=== PATIENT | female | born 1990 | race Caucasian/White ===

== ENCOUNTER → 2016-05-09 | Outpatient (REF) | payer OTHER ==
[~2016-05-09] MED LIST: ACET500C PO; IBUP80TA PO; PRENTAB55 PO
[2016-05-09 13:41] LABS: MEAN CORPUSCULAR HGB CONC 32.6 g/dl (32.0-36.5); RED CELL DISTRIBUTION WIDTH 12.8 % (11.5-14.5)
[2016-05-09 14:12] LABS: CONTROL LINE INT CTR LINE PRESENT; HIV SCRN NEGATIVE (NEGATIVE); HIV SCRN1 NEGATIVE (NEGATIVE)
[2016-05-10 09:57] LABS: HBsAg Prenatal NEGATIVE (NEGATIVE)
[2016-05-10 11:44] LABS: HCG, SERUM QUANTITATIVE 21365 MIU/ML
== END ==
LOC: M LAB REF 12:24
PROVIDERS: ATTEND Obstetrics & Gynecology
DX: O36.80X0 Pregnancy with inconclusive fetal viability, not applicable or unspecified (principal); Z3A.00 Weeks of gestation of pregnancy not specified

== ENCOUNTER 2016-06-04 22:02 | Emergency (ER) | payer OTHER ==
[~2016-06-04] VITALS: Ht 160 cm; Wt 49.0 kg
[2016-06-04 22:02] VITALS: BP 129/71
== END 2016-06-05 00:06 | disposition left against medical advice (07) ==
LOC: M ED 23:23
DX: R11.10 Vomiting, unspecified (principal); Z53.21 Procedure and treatment not carried out due to patient leaving prior to being seen by health care provider

== ENCOUNTER → 2016-07-11 | Outpatient (REF) | payer OTHER | LOC: M LAB REF 12:44 | PROVIDERS: ATTEND Advanced Practice Midwife | DX: Z34.91 Encounter for supervision of normal pregnancy, unspecified, first trimester (principal) ==

== ENCOUNTER 2016-08-21 15:16 | Outpatient (CLI) | payer OTHER ==
[~2016-08-21] VITALS: Ht 160 cm; Wt 55.0 kg
[2016-08-21] MEDS ORDERED: ZOFR20TA PO (15:24)
[2016-08-21 15:31] VITALS: BP 110/58
[2016-08-21] MEDS ORDERED: MULTIVITAMIN -ADULT INJECTION 10 ML, THIAMINE INJection 100 MG, FOLIC ACID 1 MG in NS 1... IV ONE (16:00)
[2016-08-21] MEDS ORDERED: ONDANSETRON 4MG/2ML VIAL (J2405) IV SCH (16:00)
[2016-08-21] MEDS ORDERED: ACETAMINOPHEN TAB 650MG DOSE (2X325MG) PO PRN (16:15)
[2016-08-21 16:41] LABS: MEAN CORPUSCULAR HEMOGLOBIN 29.9 pg (27.0-33.0); MEAN CORPUSCULAR HGB CONC 34.3 g/dl (32.0-36.5); MEAN CORPUSCULAR VOLUME 87.4 fl (80.0-96.0); RED CELL DISTRIBUTION WIDTH 13.2 % (11.5-14.5); WHITE BLOOD COUNT 9.9 K/mm3 (4.0-10.0)
[2016-08-21 16:50] LABS: ALBUMIN 2.9 GM/DL (3.2-5.2); ALBUMIN/GLOBULIN RATIO 0.78 (1.00-1.93); ALKALINE PHOSPHATASE 55 U/L (45-117); ALT/SGPT 15 U/L (12-78); ANION GAP 8 MEQ/L (8-16); AST/SGOT 11 U/L (15-37); BILIRUBIN,TOTAL 1.1 MG/DL (0.2-1.0); BLOOD UREA NITROGEN 10 MG/DL (7-18); CALCIUM LEVEL 8.3 MG/DL (8.5-10.1); CARBON DIOXIDE LEVEL 25 MEQ/L (21-32); CHLORIDE LEVEL 104 MEQ/L (98-107); CREATININE FOR GFR 0.53 MG/DL (0.55-1.02); GLOMERULAR FILTRATION RATE > 60.0 (>60); GLUCOSE, FASTING 75 MG/DL (70-105); POTASSIUM SERUM 3.8 MEQ/L (3.5-5.1); SODIUM LEVEL 137 MEQ/L (136-145); TOTAL PROTEIN 6.6 GM/DL (6.4-8.2)
--- NOTE | 2016-08-21 22:48 | IPNPDOC ---
Text Note Date of Service The patient was seen on 08/21/16. NOTE SUBJECTIVE: Patient is a 26 year old female who is a at 21 weeks 5 days gestation based off of her 1st trimester ultrasound and consistent with her LMP. She initiated care in her first trimester at [facility]. Her has been complicated by nausea and vomiting in her 1st trimester and early 2nd trimester. She reports to L&D with complaints of nausea, vomiting, cramping in the suprapubic area, and lower right sided back pain. She reports these symptoms have been occurring for the last 3 days. Reports back pain is one sided , sharp, shooting, consistent that shoots down her but. Reports pain is worse with movement/walking. She denies vaginal bleeding, abnormal discharge, or leaking of fluid. She states she took a Zofran 4 mg PO today at 1100 with no relief. She has been unable to eat a meal for 3 days and is only getting in sips of fluid but reports vomiting it all up. Denies dysuria. Reports that no one else is sick in her home. Denies contractions. Reports active movement. 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 Surgical Hx: D&C 2013 Family Hx: Father: HTN, hyperthyroidism, GERD; Mother: bladder and liver disease ; Brother: Cystic fibrosis; Grandmother: paternal: breast cancer. Social: , not a smoker, denies drug use, denies alcohol use, no history of STDs. OBJECTIVE: FHR doppler: 150. No contractions noted on external monitor. Abdomen : gravid and soft to palpation. No CVA tenderness bilaterally. Respiratory: rate is regular. No use of accessory muscles. VS: 110/58, 71, 16, 98.7. ASSESSMENT: IUP at 21 weeks 5 days gestation, sciatica, nausea and vomiting in . PLAN: IV ordered with banana bag to be given over 2 hours, UA and C&S ordered, CBC and CMP ordered. Zofran ordered via IV for nausea. Warm pack for pain and acetaminophen as needed once tolerating PO fluids. Patient reports that her pain is better after a warm a pack. She reports her nausea is better and was able to keep some fluids down. Script sent for rectal phenergan. Patient will follow up for routine OB appointments if she is doing well. VS,Fishbone, I+O VS, Fishbone, I+O Microbiology 5/29/17 Urine Culture, Received Pending Laboratory Tests 08/21/16 00:00 Red Blood Count 3.97 L, Mean Corpuscular Volume 87.4, Mean Corpuscular Hemoglobin 29.9, Mean Corpuscular Hemoglobin Concent 34.3, Red Cell Distribution Width 13.2, Calcium Level 8.3 L, Aspartate Amino Transf (AST/SGOT) 11 L, Alanine Aminotransferase (ALT/SGPT) 15, Alkaline Phosphatase 55, Total Bilirubin 1.1 H, Total Protein 6.6, Albumin 2.9 L Vital Signs Date Time Temp Pulse Resp B/P (MAP) Pulse Ox O2 Delivery O2 Flow Rate FiO2 08/21/16 15:31 98.7 71 16 110/58 (75) CORTEZ NICOLAS CNM August 21, 2016 22:48
== END 2016-08-21 18:51 | disposition home or self-care (01) ==
LOC: M LDO 15:16
PROVIDERS: ATTEND Advanced Practice Midwife
DX: O26.892 Other specified pregnancy related conditions, second trimester (principal); Z3A.21 21 weeks gestation of pregnancy; O21.9 Vomiting of pregnancy, unspecified; M54.30 Sciatica, unspecified side; Z14.1 Cystic fibrosis carrier; Z80.3 Family history of malignant neoplasm of breast

== ENCOUNTER → 2016-10-25 | Outpatient (CLI) | payer OTHER ==
[~2016-10-25] MED LIST changes: +ACET50TA PO; +IBUP-1114 PO; +PRENTAB9 PO; +ZOFR20TA PO
[2016-10-25 16:33] LABS: MEAN CORPUSCULAR HEMOGLOBIN 28.7 pg (27.0-33.0); MEAN CORPUSCULAR HGB CONC 33.7 g/dl (32.0-36.5); MEAN CORPUSCULAR VOLUME 85.3 fl (80.0-96.0); RED CELL DISTRIBUTION WIDTH 13.4 % (11.5-14.5); WHITE BLOOD COUNT 7.2 K/mm3 (4.0-10.0)
== END ==
LOC: M LAB 14:54
PROVIDERS: ATTEND Advanced Practice Midwife
DX: Z34.82 Encounter for supervision of other normal pregnancy, second trimester (principal); Z3A.25 25 weeks gestation of pregnancy

== ENCOUNTER → 2016-11-23 | Outpatient (REF) | payer OTHER | LOC: M LAB REF 13:00 | PROVIDERS: ATTEND Obstetrics & Gynecology | DX: Z34.83 Encounter for supervision of other normal pregnancy, third trimester (principal) ==

== ENCOUNTER 2016-12-18 00:01 | Inpatient (IN) | payer OTHER ==
[2016-12-18] VITALS (25 sets, daily range): BP systolic 104–128; BP diastolic 55–76
[~2016-12-18] VITALS: Ht 157.5 cm; Wt 61.1 kg
[~2016-12-18 00:01] MED LIST changes: -ACET50TA PO; -IBUP-1114 PO; -PRENTAB9 PO
[2016-12-18] MEDS ORDERED: LACTATED RINGER'S 1000 ML IV STA (00:47)
[2016-12-18] MEDS ORDERED: LR 1,000 ML IV SCH (00:47)
[2016-12-18] MEDS ORDERED: OXYTOCIN DRIP 30 UNITS in APPROPRIATE DILUENT 1 EA IV SCH ×2 (01:00→05:09)
[2016-12-18 01:14] LABS: MEAN CORPUSCULAR HEMOGLOBIN 27.9 pg (27.0-33.0); MEAN CORPUSCULAR VOLUME 79.7 fl (80.0-96.0); WHITE BLOOD COUNT 8.4 K/mm3 (4.0-10.0)
[2016-12-18] MEDS ORDERED: FENTANYL 2MCG/ML ROPIVACAINE 0.2% IN 0.9% NACL 200ML IVBAG As Ordered ONE (02:00)
[2016-12-18] MEDS ORDERED: LIDOCAINE 1% MDV INJ 50 ML VIAL As Ordered ONE (04:22)
[2016-12-18 05:09] LABS: CORD GAS ABE A -0.4; CORD GAS ABE V -0.6; CORD GAS HCO3 A 27.4 MEQ/L; CORD GAS HCO3 V 24.9 MEQ/L; CORD GAS O2 SAT A 30.1 %; CORD GAS O2 SAT V 74.5 %; CORD GAS PCO2 A 57.4 mmHg; CORD GAS PCO2 V 43.8 mmHg; CORD GAS PH A 7.296 UNITS; CORD GAS PH V 7.372 UNITS; CORD GAS PO2 A 17.5 mmHg; CORD GAS PO2 V 33.8 mmHg; CORD GAS SBC A 22.4 MEQ/L; CORD GAS SBC V 23.4 MEQ/L; CORD GAS TCO2 A 29.1 MEQ/L; CORD GAS TCO2 V 26.2 MEQ/L
[2016-12-18] MEDS ORDERED: METHYLERGONOVINE MALEATE 0.2 MG TAB PO PRN (05:15)
[2016-12-18] MEDS ORDERED: MEASLES,MUMPS,RUBELLA VACCINE INJ (MMR-II) (90707) SC SCH (05:15)
[2016-12-18] MEDS ORDERED: ONDANSETRON 4MG/2ML VIAL (J2405) IV PRN (05:15)
[2016-12-18] MEDS ORDERED: RHOGAM 300 MCG (1500 IU) INJ (J2790) IM SCH (05:15)
[2016-12-18] MEDS ORDERED: ACETAMINOPHEN 500 MG TAB PO PRN (05:15)
[2016-12-18] MEDS ORDERED: DOCUSATE SODIUM 100 MG CAP PO PRN (05:15)
[2016-12-18] MEDS ORDERED: DIBUCAINE 1% OINTMENT 30GM TOP PRN (05:15)
--- NOTE | 2016-12-18 05:24 | HPE ---
DATE OF ADMISSION: 12/18/2016 Ainsley is a 26-year-old, 4, para 2-0-1-2, at 38-5/7 weeks gestation with an estimated date of confinement (EDC) of 12/27/2069 based on first trimester ultrasound. She presents to labor and delivery today with report of gush of fluid at approximately 2330 hours. She reports occasional contraction, continued leakage of fluid. Denies vaginal bleeding. The fetus has been active. care initiated at [facility] in the second trimester. course complicated by of thrombocytopenia of . OBSTETRICAL HISTORY: September 2009, at 40 weeks gestation, she had a spontaneous vaginal delivery for 6 pound 11 ounce female. January 2015, at 40 weeks gestation, she had a spontaneous vaginal delivery for a 6 pound 12 ounce female and also history of elective termination of . OB LABS: Blood type O+, antibody screen negative. Pap was normal. Rubella immune, VDRL nonreactive. Urine culture negative. Hepatitis B surface antigen negative. HIV negative. Hepatitis C antibody negative. Gonorrhea and chlamydia negative. She does report that she is a positive cystic fibrosis carrier and her is negative. She did decline genetic serum screenings. Her gestational diabetic was normal at 86. GBS is negative. PAST MEDICAL HISTORY: Cystic fibrosis carrier. Childhood varicella. SURGERIES: Dilation and curettage for elective termination. FAMILY HISTORY: Cystic fibrosis carrier, negative of the . Hypertension, hyperthyroid, reflux , liver disease, cystic fibrosis. SOCIAL HISTORY: The patient is . She denies alcohol and drug use. She is a nonsmoker. No history of any sexually transmitted infections . Denies history of abuse physical, sexual and emotional allergies. NO KNOWN DRUG ALLERGIES. CURRENT MEDICATIONS: Include: - vitamin - Zofran as needed for nausea OBJECTIVE: Temperature 97.6, pulse 98, respirations 18, blood pressure 121/76. She is alert and oriented times three. She is not in any discomfort. heart rate 155, moderate variability, positive accelerations, occasional variable noted. She does have an occasional contraction. Sterile speculum exam: Positive Valsalva, positive Nitrazine, positive fern. Sterile vaginal exam: 2 cm dilated 50% effaced and minus 3station. Her abdomen is gravid, cephalic presentation. Estimated weight 6-1/2 pounds. ASSESSMENT: Intrauterine at 38-5/7 weeks, heart rate category 2, premature rupture of membranes. PLAN: Admit the patient to labor and delivery. Labs. Out of bed ad tao. Clear liquid diet. Intravenous (IV) fluid bolus. Start IV Pitocin for labor augmentation. The patient does report she has a history of quick labor so epidural will be given with the patient's request. I do anticipate labor and a spontaneous vaginal delivery. I did review risks to labor augmentation with IV Pitocin including increased risk for section, intolerance to labor. The patient has had all her questions answered and does desire to proceed. I anticipate spontaneous vaginal delivery.
--- NOTE | 2016-12-18 05:29 | DN ---
DATE OF DELIVERY: 12/18/2016: FINDINGS: Ainsley is a 26-year-old 4, para 3-0-1-3 now who was admitted to labor and delivery with premature rupture of membranes. Intravenous (IV) Pitocin was started and labor did ensue. She utilized an epidural for her labor coping. She progressed to full dilation at 0439. She pushed to a normal spontaneous vaginal delivery of a live female in occiput anterior (OA) position with restitution to left occiput transverse (LOT) position at 0442. There is a nuchal cord times one loose that was reduced manually at the time of delivery. The shoulders delivered spontaneously and the corpus immediately followed. The was placed on maternal abdomen crying and active. Her mouth and nares were bulb suctioned. The cord was clamped times two and cut by the father of the baby. Cord gases and a cord blood was obtained. Spontaneous expulsion of an intact placenta with three-vessel cord by Perry mechanism was at 0448. Uterine hemostasis achieved with IV Pitocin, rapid infusion and uterine fundal massage. Estimated blood loss 250 mL. Perineum and vagina were inspected noted to be intact. female weighed 2700 grams, 5 pounds, 15 ounces, eight and nine. The family have named their daughter Kelle - mom is going to breast feed her daughter. At the close of delivery lap counts, needle counts and instrument counts were correct and verified.
[2016-12-18] MEDS: IBUPROFEN 800 MG TAB PO PRN (09:12)
[2016-12-18] MEDS: PRENATAL VITAMINS CHEWABLE TABLET PO SCH (09:12)
[2016-12-19] MEDS: IBUPROFEN 800 MG TAB PO PRN (00:31)
[2016-12-19 05:55] VITALS: BP 132/74
[2016-12-19] MEDS: PRENATAL VITAMINS CHEWABLE TABLET PO SCH (07:35)
[2016-12-19] MEDS ORDERED: ACET50TA PO (08:33)
[2016-12-19] MEDS ORDERED: IBUP-1114 PO (08:33)
[2016-12-19] MEDS ORDERED: PRENTAB9 PO (08:33)
[2016-12-21 00:07] LABS: GC Carboxy THC 138 ng/mL (Cutoff=10)
== END 2016-12-19 18:00 | disposition home or self-care (01) | DRG 560 ==
LOC: M LDO 00:01 → M LDI 00:46 → M OBS 07:34
PROVIDERS: ADMIT Advanced Practice Midwife; ATTEND Advanced Practice Midwife
PROC: 10E0XZZ Delivery of Products of Conception, External Approach (ICD-10-PCS; principal; 2016-12-18)
DX: O42.02 Full-term premature rupture of membranes, onset of labor within 24 hours of rupture (principal); D69.6 Thrombocytopenia, unspecified; O99.12 Other diseases of the blood and blood-forming organs and certain disorders involving the immune mechanism complicating childbirth; Z37.0 Single live birth; O69.82X0 Labor and delivery complicated by other cord entanglement, without compression, not applicable or unspecified; Z3A.39 39 weeks gestation of pregnancy

== ENCOUNTER 2018-01-01 17:43 | Emergency (ER) | payer OTHER | END 2018-01-01 17:52 | disposition home or self-care (01) | LOC: M ED 17:43 | DX: S60.022A Contusion of left index finger without damage to nail, initial encounter (principal); W23.0XXA Caught, crushed, jammed, or pinched between moving objects, initial encounter; Y92.099 Unspecified place in other non-institutional residence as the place of occurrence of the external cause; Y93.9 Activity, unspecified; Y99.9 Unspecified external cause status | CPT/HCPCS: 73140 ==

== ENCOUNTER → 2018-08-26 | Outpatient (REF) | payer OTHER ==
[~2018-08-26] MED LIST changes: +IBUP-1022 PO; +IBUP-1114 PO; +MAPA500T2 PO; +PRENTAB9 PO; -ZOFR20TA PO; +ZOFR4TAB16 PO
[2018-08-26 20:04] LABS: BASO % 0.3 % (0.0-1.0); EOS # 0.1 10^3/uL (0.0-0.50); EOS % 1.9 % (0.0-3.0); HEMATOCRIT 40.5 % (36.0-47.0); HEMOGLOBIN 13.2 g/dl (12.0-15.5); LYMPH # 2.1 10^3/uL (1.5-4.5); LYMPH % 30.1 % (24.0-44.0); MEAN CORPUSCULAR HEMOGLOBIN 28.5 pg (27.0-33.0); MEAN CORPUSCULAR HGB CONC 32.6 g/dl (32.0-36.5); MEAN CORPUSCULAR VOLUME 87.5 fl (80.0-96.0); MONO # 0.6 10^3/uL (0.0-0.8); NEUTROPHILS # 4.1 10^3/uL (1.8-7.7); NEUTROPHILS % 58.6 % (36.0-66.0); PLATELET COUNT, AUTOMATED 189 10^3/uL (150-450); RED BLOOD COUNT 4.63 10^6/uL (4.00-5.40); WHITE BLOOD COUNT 6.9 10^3/uL (4.0-10.0)
[2018-08-26 20:27] LABS: ALBUMIN 4.2 GM/DL (3.2-5.2); ALT/SGPT 19 U/L (12-78); BILIRUBIN,TOTAL 0.9 MG/DL (0.2-1.0); BLOOD UREA NITROGEN 14 MG/DL (7-18); CARBON DIOXIDE LEVEL 29 MEQ/L (21-32); CHLORIDE LEVEL 105 MEQ/L (98-107); CHOLESTEROL LEVEL 163 MG/DL (<200); CHOLESTEROL RISK RATIO 4.657 (<5); CREATININE FOR GFR 0.72 MG/DL (0.55-1.30); FREE T4 0.92 NG/DL (0.76-1.46); GLOMERULAR FILTRATION RATE > 60.0 (>60); GLUCOSE, FASTING 83 MG/DL (70-100); HDL CHOLESTEROL 35 MG/DL (>40); LDL CHOLESTEROL 94 MG/DL (<100); NON-HDL-C 128 MG/DL; POTASSIUM SERUM 4.5 MEQ/L (3.5-5.1); SODIUM LEVEL 141 MEQ/L (136-145); TOTAL PROTEIN 7.5 GM/DL (6.4-8.2); TRIGLYCERIDES LEVEL 169 MG/DL (<150)
[2018-08-26 20:29] LABS: HEMOGLOBIN A1c 5.2 %
[2018-08-26 22:04] LABS: TOTAL 25(OH) VITAMIN D 21.3 NG/ML (30.0-100.0)
== END ==
LOC: M LAB REF 19:17
PROVIDERS: ATTEND Nurse Practitioner Family
DX: Z13.9 Encounter for screening, unspecified (principal)

== ENCOUNTER → 2019-09-17 | Outpatient (REF) | payer OTHER, MEDICAID ==
[2019-09-17 19:11] LABS: APPEARANCE, URINE HAZY (CLEAR); BACTERIA, URINE AUTO NEGATIVE (NEGATIVE); BILIRUBIN, URINE AUTO NEGATIVE (NEGATIVE); BLOOD, URINE BLOOD NEGATIVE (NEGATIVE); COLOR, URINE YELLOW (YELLOW); GLUCOSE, URINE (UA) AUTO NEGATIVE (NEGATIVE); KETONE, URINE AUTO NEGATIVE (NEGATIVE); LEUKOCYTE ESTERASE, URINE AUTO NEGATIVE (NEGATIVE); MUCUS, URINE SMALL (NEGATIVE); NITRITE, URINE AUTO NEGATIVE (NEGATIVE); PROTEIN, URINE AUTO NEGATIVE (NEGATIVE); RBC, URINE AUTO 0 /HPF (0-3); SPECIFIC GRAVITY URINE AUTO 1.019 (1.002-1.035); SQUAMOUS EPITHELIAL CELL UR AU 5 /HPF (0-6); URINE PREG TEST NEGATIVE (NEGATIVE); UROBILINOGEN, URINE AUTO 0.2 mg/dL (0.0-2.0); WBC, URINE AUTO 1 /HPF (0-3)
[2019-09-17 22:01] LABS: CHLAMYDIA DNA AMPLIFICATION NEGATIVE (NEGATIVE); GC DNA AMPLIFICATION NEGATIVE (NEGATIVE)
== END ==
LOC: M LAB REF 17:05
PROVIDERS: ATTEND Nurse Practitioner Family
DX: Z11.3 Encounter for screening for infections with a predominantly sexual mode of transmission (principal); N92.5 Other specified irregular menstruation

== ENCOUNTER → 2020-01-01 | Outpatient (CLI) | payer OTHER, MEDICAID ==
--- NOTE | 2020-01-06 10:06 | REP ---
TRANVESICAL PELVIC ULTRASOUND REASON FOR EXAM: Early OB ultrasound. FINDINGS: Within the uterus, there is an echogenic structure the mean crown-rump length measurement of which is consistent with a 10 week 5 day gestational age. Based on that, the estimated date of delivery is 07/24/2020. An anechoic structure is seen within the gestational sac consistent with a yolk sac. The ovaries were not examined today. The patient refused transvaginal imaging. Doppler interrogation of the heart shows a heart rate of 157 beats per minute. IMPRESSION: Early OB ultrasound as described above. KEVIND
== END ==
LOC: M RAD 13:03
DX: Z32.01 Encounter for pregnancy test, result positive (principal); Z3A.10 10 weeks gestation of pregnancy

== ENCOUNTER 2021-03-30 07:35 | Emergency (ER) | payer OTHER, MEDICAID ==
[~2021-03-30] VITALS: Ht 160 cm; Wt 53.2 kg
[2021-03-30 08:50] LABS: BASO % 0.5 % (0.0-1.0); EOS # 0.3 10^3/uL (0.0-0.5); EOS % 3.9 % (0.0-3.0); HEMATOCRIT 40.7 % (36.0-47.0); HEMOGLOBIN 13.4 g/dl (12.0-15.5); LYMPH # 1.7 10^3/uL (1.5-5.0); LYMPH % 25.9 % (24.0-44.0); MEAN CORPUSCULAR HGB CONC 32.9 g/dl (32.0-36.5); MEAN CORPUSCULAR VOLUME 88.1 fl (80.0-96.0); MONO # 0.7 10^3/uL (0.0-0.8); NEUTROPHILS # 3.8 10^3/uL (1.5-8.5); NEUTROPHILS % 58.5 % (36.0-66.0); PLATELET COUNT, AUTOMATED 179 10^3/uL (150-450); RED BLOOD COUNT 4.62 10^6/uL (4.00-5.40); WHITE BLOOD COUNT 6.5 10^3/uL (4.0-10.0)
[2021-03-30 09:09] LABS: BLOOD UREA NITROGEN 13 MG/DL (7-18); CALCIUM LEVEL 8.5 MG/DL (8.5-10.1); CARBON DIOXIDE LEVEL 27 MEQ/L (21-32); CHLORIDE LEVEL 109 MEQ/L (98-107); CREATININE FOR GFR 0.68 MG/DL (0.55-1.30); GLOMERULAR FILTRATION RATE > 60.0 (>60); GLUCOSE, FASTING 99 MG/DL (70-100); POTASSIUM SERUM 4.7 MEQ/L (3.5-5.1); SODIUM LEVEL 141 MEQ/L (136-145)
[2021-03-30 11:53] VITALS: BP 120/58
[2021-03-30 13:42] LABS: GC DNA AMPLIFICATION NEGATIVE (NEGATIVE)
== END 2021-03-30 11:59 | disposition home or self-care (01) ==
LOC: M ED 07:35
DX: O36.80X0 Pregnancy with inconclusive fetal viability, not applicable or unspecified (principal); O20.8 Other hemorrhage in early pregnancy; Z3A.00 Weeks of gestation of pregnancy not specified

== ENCOUNTER → 2021-04-01 | Outpatient (REF) | payer OTHER, MEDICAID | LOC: M LAB REF 11:13 | PROVIDERS: ATTEND Obstetrics & Gynecology | DX: O36.80X0 Pregnancy with inconclusive fetal viability, not applicable or unspecified (principal); Z3A.00 Weeks of gestation of pregnancy not specified ==

== ENCOUNTER → 2021-05-24 | Outpatient (REF) | payer OTHER, MEDICAID ==
[2021-05-24 12:57] LABS: HEMATOCRIT 41.2 % (36.0-47.0); HEMOGLOBIN 13.9 g/dl (12.0-15.5); MEAN CORPUSCULAR HEMOGLOBIN 29.3 pg (27.0-33.0); MEAN CORPUSCULAR HGB CONC 33.7 g/dl (32.0-36.5); MEAN CORPUSCULAR VOLUME 86.7 fl (80.0-96.0); PLATELET COUNT, AUTOMATED 174 10^3/uL (150-450); RED BLOOD COUNT 4.75 10^6/uL (4.00-5.40)
[2021-05-24 13:47] LABS: HCG, SERUM QUANTITATIVE 56 MIU/ML
[2021-05-24 14:33] LABS: HEPATITIS B SURFACE ANTIGEN NEGATIVE (NEGATIVE)
[2021-05-24 15:01] LABS: HIV 1&2 SCREEN CENTAUR NEGATIVE (NEGATIVE)
== END ==
LOC: M LAB REF 12:31
PROVIDERS: ATTEND Obstetrics & Gynecology
DX: Z32.01 Encounter for pregnancy test, result positive (principal)

== ENCOUNTER → 2021-05-26 | Outpatient (REF) | payer OTHER, MEDICAID | LOC: M LAB REF 16:17 | PROVIDERS: ATTEND Obstetrics & Gynecology | DX: O36.80X0 Pregnancy with inconclusive fetal viability, not applicable or unspecified (principal); Z32.01 Encounter for pregnancy test, result positive; Z3A.00 Weeks of gestation of pregnancy not specified ==

== ENCOUNTER → 2021-05-30 | Outpatient (REF) | payer OTHER, MEDICAID | LOC: M LAB REF 16:31 | PROVIDERS: ATTEND Obstetrics & Gynecology | DX: O36.80X0 Pregnancy with inconclusive fetal viability, not applicable or unspecified (principal); Z32.01 Encounter for pregnancy test, result positive; Z3A.00 Weeks of gestation of pregnancy not specified ==

== ENCOUNTER → 2021-06-09 | Outpatient (REF) | payer OTHER, MEDICAID | LOC: M LAB REF 16:12 | PROVIDERS: ATTEND Obstetrics & Gynecology | DX: O36.80X0 Pregnancy with inconclusive fetal viability, not applicable or unspecified (principal) ==

== ENCOUNTER → 2021-08-25 | Outpatient (REF) | payer OTHER, MEDICAID ==
[2021-08-25 18:29] LABS: HEMATOCRIT 43.9 % (36.0-47.0); HEMOGLOBIN 14.5 g/dl (12.0-15.5); MEAN CORPUSCULAR HEMOGLOBIN 29.3 pg (27.0-33.0); MEAN CORPUSCULAR VOLUME 88.7 fl (80.0-96.0); PLATELET COUNT, AUTOMATED 191 10^3/uL (150-450); RED BLOOD COUNT 4.95 10^6/uL (4.00-5.40)
[2021-08-25 18:48] LABS: HCG, SERUM QUANTITATIVE 265 MIU/ML
[2021-08-25 19:07] LABS: HEPATITIS B SURFACE ANTIGEN NEGATIVE (NEGATIVE)
[2021-08-25 19:35] LABS: HEPATITIS C VIRUS ABY INDEX 0.1 INDEX (<0.8); HIV 1&2 SCREEN CENTAUR NEGATIVE (NEGATIVE)
== END ==
LOC: M LAB REF 17:09
PROVIDERS: ATTEND Obstetrics & Gynecology
DX: O36.80X0 Pregnancy with inconclusive fetal viability, not applicable or unspecified (principal); Z32.01 Encounter for pregnancy test, result positive

== ENCOUNTER → 2021-08-30 | Outpatient (REF) | payer OTHER, MEDICAID | LOC: M LAB REF 11:31 | PROVIDERS: ATTEND Advanced Practice Midwife | DX: O20.0 Threatened abortion (principal) ==

== ENCOUNTER → 2021-09-21 | Outpatient (REF) | payer OTHER, MEDICAID | LOC: M LAB REF 16:14 | PROVIDERS: ATTEND Obstetrics & Gynecology | DX: R39.15 Urgency of urination (principal) ==

== ENCOUNTER 2021-10-28 05:58 | Emergency (ER) | payer OTHER, MEDICAID ==
[~2021-10-28] VITALS: Ht 160 cm; Wt 58.2 kg
[2021-10-28] MEDS ORDERED: ONDA-83 PO (06:06)
[2021-10-28 06:49] LABS: BASO % 0.3 % (0.0-1.0); EOS # 0.1 10^3/uL (0.0-0.5); EOS % 1.8 % (0.0-3.0); HEMATOCRIT 37.4 % (36.0-47.0); HEMOGLOBIN 12.5 g/dl (12.0-15.5); LYMPH # 1.8 10^3/uL (1.5-5.0); LYMPH % 22.3 % (24.0-44.0); MEAN CORPUSCULAR HGB CONC 33.4 g/dl (32.0-36.5); MEAN CORPUSCULAR VOLUME 89.7 fl (80.0-96.0); MONO # 0.6 10^3/uL (0.0-0.8); MONO % 8.1 % (2.0-8.0); NEUTROPHILS # 5.3 10^3/uL (1.5-8.5); NEUTROPHILS % 67.1 % (36.0-66.0); PLATELET COUNT, AUTOMATED 189 10^3/uL (150-450); RED BLOOD COUNT 4.17 10^6/uL (4.00-5.40); WHITE BLOOD COUNT 7.9 10^3/uL (4.0-10.0)
[2021-10-28 07:58] LABS: ALT/SGPT 14 U/L (12-78); BILIRUBIN,DIRECT 0.2 MG/DL (0.0-0.2); BILIRUBIN,TOTAL 0.7 MG/DL (0.2-1.0); BLOOD UREA NITROGEN 10 MG/DL (7-18); CALCIUM LEVEL 8.5 MG/DL (8.5-10.1); CARBON DIOXIDE LEVEL 27 MEQ/L (21-32); CHLORIDE LEVEL 106 MEQ/L (98-107); CREATININE FOR GFR 0.67 MG/DL (0.55-1.30); GLOMERULAR FILTRATION RATE > 60.0 (>60); GLUCOSE, FASTING 93 MG/DL (70-100); HCG, SERUM QUANTITATIVE 80798 MIU/ML; LIPASE 65 U/L (73-393); SODIUM LEVEL 138 MEQ/L (136-145); TOTAL PROTEIN 6.6 GM/DL (6.4-8.2)
[2021-10-28] MEDS ORDERED: ONDANSETRON 4MG 2ML VIAL IV ONE (11:10)
[2021-10-28] MEDS ORDERED: NS 1,000 ML IV ONE (11:10)
[2021-10-28] MEDS ORDERED: PROMETHAZINE 25MG/ML 1ML VIAL IV ONE (12:00)
[2021-10-28] MEDS ORDERED: PROM25TA12 PO (12:49)
[2021-10-28 13:29] VITALS: BP 106/57
== END 2021-10-28 13:35 | disposition home or self-care (01) ==
LOC: M ED 05:58
DX: O26.811 Pregnancy related exhaustion and fatigue, first trimester (principal); R55 Syncope and collapse; O21.9 Vomiting of pregnancy, unspecified; I45.10 Unspecified right bundle-branch block; Z79.899 Other long term (current) drug therapy; Z3A.13 13 weeks gestation of pregnancy
CPT/HCPCS: 76801; 80048; 80076; 81001; 83690; 84702; 85025; 86850; 86900; 86901; 93005; 96361; 96374; 96375; 99284; J2405; J2550

== ENCOUNTER → 2021-11-22 | Outpatient (REF) | payer OTHER ==
[~2021-11-22] MED LIST changes: +ONDA-83 PO; +PROM25TA12 PO
== END ==
LOC: M LAB REF 16:23
PROVIDERS: ATTEND Obstetrics & Gynecology
DX: Z34.82 Encounter for supervision of other normal pregnancy, second trimester (principal)

== ENCOUNTER → 2021-12-12 | Outpatient (CLI) | payer OTHER | LOC: M RAD 12:13 | PROVIDERS: ATTEND Obstetrics & Gynecology | DX: Z34.92 Encounter for supervision of normal pregnancy, unspecified, second trimester (principal); Z3A.19 19 weeks gestation of pregnancy ==

== ENCOUNTER → 2022-01-25 | Outpatient (CLI) | payer OTHER | LOC: M WHC 11:20 | PROVIDERS: ATTEND Obstetrics & Gynecology | DX: Z34.82 Encounter for supervision of other normal pregnancy, second trimester (principal); Z3A.25 25 weeks gestation of pregnancy ==

== ENCOUNTER → 2022-02-13 | Outpatient (CLI) | payer OTHER | LOC: M WHC 14:37 | PROVIDERS: ATTEND Obstetrics & Gynecology | DX: O26.843 Uterine size-date discrepancy, third trimester (principal); Z3A.28 28 weeks gestation of pregnancy ==

== ENCOUNTER → 2022-03-02 | Outpatient (CLI) | payer OTHER ==
[2022-03-02 11:10] LABS: HEMOGLOBIN 11.6 g/dl (12.0-15.5); MEAN CORPUSCULAR HEMOGLOBIN 28.6 pg (27.0-33.0); MEAN CORPUSCULAR HGB CONC 31.4 g/dl (32.0-36.5); MEAN CORPUSCULAR VOLUME 91.4 fl (80.0-96.0); PLATELET COUNT, AUTOMATED 174 10^3/uL (150-450); RED BLOOD COUNT 4.05 10^6/uL (4.00-5.40); WHITE BLOOD COUNT 12.2 10^3/uL (4.0-10.0)
== END ==
LOC: M LAB 09:02
PROVIDERS: ATTEND Obstetrics & Gynecology
DX: Z36.89 Encounter for other specified antenatal screening (principal)

== ENCOUNTER → 2022-04-05 | Outpatient (REF) | payer OTHER | LOC: M LAB REF 16:08 | PROVIDERS: ATTEND Obstetrics & Gynecology | DX: Z34.83 Encounter for supervision of other normal pregnancy, third trimester (principal) ==

== ENCOUNTER 2022-05-04 18:08 | Inpatient (IN) | payer OTHER ==
[2022-05-04] VITALS (14 sets, daily range): BP systolic 108–131; BP diastolic 56–79
[~2022-05-04] VITALS: Ht 160 cm; Wt 71.7 kg
[2022-05-04] MEDS ORDERED: ACET500P3 PO (18:37)
[2022-05-04] MEDS ORDERED: TUMS500C PO (18:38)
[2022-05-04] MEDS ORDERED: HOME MED LIST COMPLETE! XX SCH (18:40)
[2022-05-04] MEDS ORDERED: LIDOCAINE 1% MDV 20ML VIAL INFIL PRN (20:55)
[2022-05-04] MEDS ORDERED: OXYTOCIN DRIP 30 UNITS in IV 1 EA IV PRN (20:55)
[2022-05-04] MEDS ORDERED: OXYTOCIN DRIP 30 UNITS in IV 1 EA IV SCH (21:00)
[2022-05-04] MEDS: LR 1,000 ML IV SCH ×2 (21:03→22:44)
[2022-05-04 21:26] LABS: HEMATOCRIT 34.3 % (36.0-47.0); HEMOGLOBIN 11.2 g/dl (12.0-15.5); MEAN CORPUSCULAR HEMOGLOBIN 27.3 pg (27.0-33.0); MEAN CORPUSCULAR HGB CONC 32.7 g/dl (32.0-36.5); MEAN CORPUSCULAR VOLUME 83.5 fl (80.0-96.0); PLATELET COUNT, AUTOMATED 200 10^3/uL (150-450); RED BLOOD COUNT 4.11 10^6/uL (4.00-5.40); WHITE BLOOD COUNT 14.1 10^3/uL (4.0-10.0)
[2022-05-04] MEDS ORDERED: FENTANYL 2MCG/ML ROPIVACAINE 0.2% IN 0.9% NACL 100ML IVBAG As Ordered ONE (22:38)
[2022-05-04] MEDS ORDERED: diphenhydrAMINE 50MG/ML VIAL IV PRN (22:40)
[2022-05-04] MEDS ORDERED: FENTANYL/ROPIVACAINE/NACL BAG 100 ML EPIDURAL SCH (22:40)
[2022-05-04] MEDS ORDERED: ONDANSETRON 4MG 2ML VIAL IV PRN (22:40)
[2022-05-04] MEDS ORDERED: NALOXONE INJ 0.4MG/1ML VIAL IV PRN (22:40)
[2022-05-04] MEDS ORDERED: LR 500 ML IV PRN (22:40)
[2022-05-04] MEDS ORDERED: EPIDURAL/PCA KEYS XX PRN (22:40)
[2022-05-04] MEDS ORDERED: ePHEDrine SULFATE 25 MG/5 ML(5MG/ML) SYRINGE IVP PRN (22:40)
[2022-05-05] VITALS (14 sets, daily range): BP systolic 106–182; BP diastolic 55–94
[2022-05-05] MEDS ORDERED: CALCIUM CARBONATE 500 MG CHEW U/D PO ONE
[2022-05-05] MEDS ORDERED: DIBUCAINE 1% OINTMENT 30GM TOP PRN (03:45)
[2022-05-05] MEDS ORDERED: METHYLERGONOVINE MALEATE 0.2 MG TAB PO PRN (03:45)
[2022-05-05] MEDS ORDERED: RHOGAM 300MCG (1500IU) INJ IM SCH (03:45)
[2022-05-05] MEDS ORDERED: ACETAMINOPHEN TAB 650MG DOSE (2X325MG) PO PRN (03:45)
[2022-05-05] MEDS ORDERED: IBUPROFEN 600MG TAB PO PRN (03:45)
[2022-05-05] MEDS ORDERED: ACETAMINOPHEN 500 MG TAB PO PRN (03:45)
[2022-05-05] MEDS ORDERED: DOCUSATE SODIUM 100MG CAPSULE PO PRN (03:45)
[2022-05-05] MEDS: PRENATAL VITAMINS CHEWABLE TABLET PO SCH (08:21)
[2022-05-05] MEDS ORDERED: INFLUENZA QUADRIVALENT PF VACCINE 0.5ML SYRINGE IM.IMMUN ONE (13:00)
[2022-05-05] MEDS: IBUPROFEN 800 MG TAB PO PRN (15:29)
[2022-05-06 05:25] VITALS: BP 104/56
[2022-05-06] MEDS: PRENATAL VITAMINS CHEWABLE TABLET PO SCH (08:04)
[2022-05-06] MEDS: IBUPROFEN 800 MG TAB PO PRN (08:09)
[2022-05-06] MEDS ORDERED: INFLUENZA QUADRIVALENT PF VACCINE 0.5ML SYRINGE IM.IMMUN ONE (09:00)
[2022-05-07] MEDS ORDERED: MEASLES,MUMPS,RUBELLA VACCINE INJ (MMR-II) SC.IMMUN ONE (09:00)
== END 2022-05-06 12:20 | disposition home or self-care (01) | DRG 560 ==
LOC: M LDO 18:08 → M LDI 20:41 → M OBS 05-05 05:17
PROVIDERS: ADMIT Specialist; ATTEND Specialist
PROC: 10E0XZZ Delivery of Products of Conception, External Approach (ICD-10-PCS; principal; 2022-05-05)
DX: O69.82X0 Labor and delivery complicated by other cord entanglement, without compression, not applicable or unspecified (principal); Z37.0 Single live birth; Z3A.39 39 weeks gestation of pregnancy

== ENCOUNTER → 2023-04-27 | Outpatient (CLI) | payer OTHER ==
[~2023-04-27] MED LIST changes: +ACET500P3 PO; +TUMS500C PO
== END ==
LOC: M WUC 11:26
PROVIDERS: ATTEND Physician Assistant
DX: S60.012A Contusion of left thumb without damage to nail, initial encounter (principal)

== ENCOUNTER → 2023-10-17 | Outpatient (REF) | payer OTHER ==
[~2023-10-17] MED LIST changes: +CIPR250T3 PO; +KETO10TAB PO
[2023-10-17 13:36] LABS: APPEARANCE, URINE HAZY (CLEAR); BACTERIA, URINE AUTO 1+ (NEGATIVE); BILIRUBIN, URINE AUTO NEGATIVE (NEGATIVE); BLOOD, URINE BLOOD 2+ (NEGATIVE); COLOR, URINE YELLOW (YELLOW); GLUCOSE, URINE (UA) AUTO NEGATIVE (NEGATIVE); KETONE, URINE AUTO NEGATIVE (NEGATIVE); LEUKOCYTE ESTERASE, URINE AUTO 3+ (NEGATIVE); MUCUS, URINE SMALL (NEGATIVE); NITRITE, URINE AUTO POSITIVE (NEGATIVE); PROTEIN, URINE AUTO 1+ mg/dL (NEGATIVE); RBC, URINE AUTO 11 /HPF (0-3); SPECIFIC GRAVITY URINE AUTO 1.012 (1.002-1.035); SQUAMOUS EPITHELIAL CELL UR AU 4 /HPF (0-6); UROBILINOGEN, URINE AUTO 0.2 mg/dL (0.0-2.0); WBC, URINE AUTO 102 /HPF (0-3)
== END ==
LOC: M LAB REF 12:37
PROVIDERS: ATTEND Physician Assistant
DX: N39.0 Urinary tract infection, site not specified (principal)

== ENCOUNTER 2023-10-18 22:49 | Emergency (ER) | payer OTHER ==
[~2023-10-18] VITALS: Ht 160 cm; Wt 55.4 kg
[~2023-10-18 22:49] MED LIST changes: -CIPR250T3 PO; -KETO10TAB PO
[2023-10-18] MEDS ORDERED: CIPR250T3 PO (22:55)
[2023-10-18] MEDS ORDERED: KETO10TAB PO (22:55)
[2023-10-18 23:58] LABS: RSV AMPLIFICATION NEGATIVE (NEGATIVE)
[2023-10-19 02:04] VITALS: BP 114/67; TEMP 98.7; O2SAT 98
== END 2023-10-19 02:18 | disposition left against medical advice (07) ==
LOC: M ED 22:49
DX: Z53.21 Procedure and treatment not carried out due to patient leaving prior to being seen by health care provider (principal)

== ENCOUNTER → 2024-04-17 | Outpatient (REF) | payer OTHER ==
[~2024-04-17] MED LIST changes: +CIPR250T3 PO; +KETO10TAB PO
[2024-04-18 11:31] LABS: URINE PREG TEST POSITIVE (NEGATIVE)
== END ==
LOC: M LAB REF 11:21
PROVIDERS: ATTEND Physician Assistant Medical
DX: Z32.00 Encounter for pregnancy test, result unknown (principal)

== ENCOUNTER → 2024-05-01 | Outpatient (REF) | payer OTHER ==
[2024-05-01 16:53] LABS: HEMATOCRIT 36.9 % (36.0-47.0); HEMOGLOBIN 12.4 g/dl (12.0-15.5); MEAN CORPUSCULAR HEMOGLOBIN 28.9 pg (27.0-33.0); MEAN CORPUSCULAR HGB CONC 33.6 g/dl (32.0-36.5); PLATELET COUNT, AUTOMATED 171 10^3/uL (150-450); RED BLOOD COUNT 4.29 10^6/uL (4.00-5.40); WHITE BLOOD COUNT 9.2 10^3/uL (4.0-10.0)
[2024-05-01 17:30] LABS: HEPATITIS B SURFACE ANTIGEN NEGATIVE (NEGATIVE)
[2024-05-01 17:43] LABS: HIV 1&2 SCREEN NEGATIVE (NEGATIVE)
[2024-05-01 17:51] LABS: HEPATITIS C VIRUS ABY INDEX 0.16 INDEX (<0.8)
[2024-05-01 17:56] LABS: HCG, SERUM QUANTITATIVE 57978.3 MIU/ML (<4.2)
== END ==
LOC: M LAB REF 16:20
PROVIDERS: ATTEND Obstetrics & Gynecology
DX: O36.80X0 Pregnancy with inconclusive fetal viability, not applicable or unspecified (principal)

== ENCOUNTER → 2025-01-19 | Outpatient (REF) | payer OTHER ==
[~2025-01-19] MED LIST changes: -IBUP-1022 PO; +IBUP600T42 PO
[2025-01-19 12:18] LABS: APPEARANCE, URINE TURBID (CLEAR); BACTERIA, URINE AUTO 2+ (NEGATIVE); BILIRUBIN, URINE AUTO NEGATIVE (NEGATIVE); BLOOD, URINE BLOOD 3+ (NEGATIVE); GLUCOSE, URINE (UA) AUTO NEGATIVE (NEGATIVE); KETONE, URINE AUTO NEGATIVE (NEGATIVE); LEUKOCYTE ESTERASE, URINE AUTO 2+ (NEGATIVE); MUCUS, URINE LARGE (NEGATIVE); NITRITE, URINE AUTO POSITIVE (NEGATIVE); PROTEIN, URINE AUTO 2+ mg/dL (NEGATIVE); RBC, URINE AUTO TNTC /HPF (0-3); SPECIFIC GRAVITY URINE AUTO 1.023 (1.002-1.035); SQUAMOUS EPITHELIAL CELL UR AU 7 /HPF (0-6); UROBILINOGEN, URINE AUTO 0.2 mg/dL (0.0-2.0); WBC, URINE AUTO TNTC /HPF (0-3)
== END ==
LOC: M LAB REF 11:51
DX: N39.0 Urinary tract infection, site not specified (principal); B95.2 Enterococcus as the cause of diseases classified elsewhere